=== PATIENT | male | born 1970 | race Caucasian/White ===

== ENCOUNTER 2018-09-15 16:35 | Emergency (ER) | payer SELFPAY ==
[2018-09-15 16:50] VITALS: BMI 35.5
[2018-09-15] MEDS ORDERED: KETOROLAC TROMETHAMINE 60 MG/2 ML VIAL IM ONE (17:48)
[2018-09-15] MEDS ORDERED: traMADol HCL 50 MG TABLET PO ONE (17:49)
--- NOTE | 2018-09-15 17:55 | PDOC ---
History of Present Illness - General Chief Complaint: Back Pain Stated Complaint: BACK PAIN Time Seen by Provider: 09/15/18 17:33 History Source: Patient - History of Present Illness Occurred: reports: other Pain Location: reports: back Past History - Past Medical History Allergies/Adverse Reactions: Allergies Allergy/AdvReac Type Severity Reaction Status Date / Time No Known Allergies Allergy Verified 09/15/18 16:47 COPD: No HTN: No Other medical history: DENIES - Immunization History Immunization Up to Date: No - Suicide/Smoking/Psychosocial Hx Smoking History: Never smoked Hx Alcohol Use: No Drug/Substance Use Hx: No Review of Systems - Review of Systems Constitutional: No: Chills, Fever ABD/GI: No: Nausea, Vomiting, Abdominal cramping : No: Dysuria, Flank Pain, Hematuria Musculoskeletal: Yes: Back Pain Neurological: No: Numbness, Tingling, Weakness *Physical Exam - Vital Signs Last Vital Signs Temp Pulse Resp BP Pulse Ox 98.0 F 74 18 180/110 H 100 09/15/18 16:47 09/15/18 16:47 09/15/18 16:47 09/15/18 16:47 09/15/18 16:47 - Physical Exam Comments: 09/15/18 17:55 Pt standing in ED, reports painful to sit General Appearance: Yes: Appropriately Dressed, Moderate Distress HEENT: positive: Normal Voice Neck: positive: Supple Respiratory/Chest: negative: Respiratory Distress Gastrointestinal/Abdominal: positive: Normal Bowel Sounds, Soft. negative: Tender, Pulsatile Mass, Distended, Guarding, Rebound Musculoskeletal: positive: Vertebral Tenderness (to mid lower back). negative: CVA Tenderness Extremity: positive: Normal Inspection Integumentary: positive: Dry, Warm Neurologic: positive: Fully Oriented, Alert, Normal Mood/Affect, Motor Strength 5/5 Medical Decision Making - Medical Decision Making 09/15/18 17:50 48-year-old male, no significant history, here with non-radiating mid lower back pain that started 2 days ago after living lifting a large watermelon per patient describes pain as sharp, constant, 10-10 and worse when sitting and standing. Has not tried anything for pain. No lower extremity sensory changes, weakness, saddle anesthesia, bowel or bladder incontinence. No history of back pain in the past. Denies any hematuria, dysuria, nausea or vomiting. No abdominal pain See exam LBP in setting of heavy lifting No red flags at this time, i.e cauda equina, etc Exam remarkable for sig elevated BP (does not carry a h/o HTN) w/ ttp to mid lower back, unable to sit in ED, no abd pain/ttp to suggest dissection at this time -pain control -reassess 09/15/18 18:45 Pt signed out to YAJAIRA Blackwell pending reassessment *DC/Admit/Observation/Transfer Diagnosis at time of Disposition: Low back strain Qualifiers: Encounter type: initial encounter Qualified Code(s): S39.012A - Strain of muscle, fascia and tendon of lower back, initial encounter - Discharge Dispostion Condition at time of disposition: Improved - Referrals - Patient Instructions - Post Discharge Activity
[2018-09-15] MEDS ORDERED: KETOROLAC TROMETHAMINE 60 MG/2 ML VIAL ONE (18:06)
[2018-09-15] MEDS ORDERED: traMADol HCL 50 MG TABLET ONE (18:06)
--- NOTE | 2018-09-15 19:58 | PDOC ---
*Physical Exam - Vital Signs Last Vital Signs Temp Pulse Resp BP Pulse Ox 98.0 F 74 18 180/110 H 100 09/15/18 16:47 09/15/18 16:47 09/15/18 16:47 09/15/18 16:47 09/15/18 16:47 - Physical Exam General Appearance: Yes: Appropriately Dressed Musculoskeletal: positive: Vertebral Tenderness Integumentary: positive: Normal Color, Dry, Warm Neurologic: positive: Fully Oriented, Alert ED Treatment Course - Medications Given in the ED: ED Medications Discontinued Medications Generic Name Dose Route Start Last Admin Trade Name Freq PRN Reason Stop Dose Admin Ketorolac Tromethamine 60 mg 09/15/18 17:48 09/15/18 18:14 Toradol Injection - IM 09/15/18 17:49 60 mg ONCE ONE Administration Tramadol HCl 50 mg 09/15/18 17:49 09/15/18 18:15 Ultram - PO 09/15/18 17:50 50 mg ONCE ONE Administration Medical Decision Making - Medical Decision Making 09/15/18 19:53 no midline pain. patient is able to move side to side., b/p likely related to pain. will d/c home with flexeril and ibuprofen. discussed with patient that he needs to follow up with a PCP or orthopedic. likely will benefit from PT. 09/16/18 05:38 *DC/Admit/Observation/Transfer Diagnosis at time of Disposition: Low back strain Qualifiers: Encounter type: initial encounter Qualified Code(s): S39.012A - Strain of muscle, fascia and tendon of lower back, initial encounter - Discharge Dispostion Disposition: HOME Condition at time of disposition: Improved - Prescriptions Prescriptions: Cyclobenzaprine HCl [Flexeril -] 10 mg PO TID PRN #10 tablet PRN Reason: Back Pain Ibuprofen 600 mg PO QID PRN #20 tablet PRN Reason: Pain - Referrals Referrals: Ambrosio Zuniga MD [Staff Physician] - Call tomorrow - Patient Instructions Printed Discharge Instructions: Low Back Pain Additional Instructions: apply ice to the area start light stretches. take ibuprofen every 6 hours as needed for pain take flexeril as prescribed. this medication can make you sleepy. do notdrive after taking this medication or operate heavy machinery. Additional Instructions: * Please call your personal physician to report your Emergency Department visit and to report your progress, if any. * If there is no improvement in symptoms in 2 days call your physician. * Return to the Emergency Department for any worsening symptoms. - Post Discharge Activity Forms/Work/School Notes: Back to Work
[2018-09-15 20:58] VITALS: BP 150/90; PULSE 70; TEMP 97.7
== END 2018-09-15 21:00 | disposition home or self-care (01) ==
LOC: JER 16:35
PROC: 3E0233Z Introduction of Anti-inflammatory into Muscle, Percutaneous Approach (ICD-10-PCS; principal; 2018-09-15)
DX: S39.012A Strain of muscle, fascia and tendon of lower back, initial encounter (principal); X50.0XXA Overexertion from strenuous movement or load, initial encounter; Y93.89 Activity, other specified; Y92.89 Other specified places as the place of occurrence of the external cause; Y99.8 Other external cause status
CPT/HCPCS: 99282-25

== ENCOUNTER 2022-06-29 17:57 | Emergency (ER) | payer OTHER ==
[2022-06-29 18:09] VITALS: BMI 36.0
[2022-06-29] MEDS ORDERED: KETOROLAC TROMETHAMINE 30 MG/1 ML VIAL IM ONE (19:36)
[2022-06-29] MEDS ORDERED: LIDOCAINE 5% TOPICAL PATCH TP ONE (19:36)
[2022-06-29] MEDS ORDERED: CYCLOBENZAPRINE HCL 10 MG TABLET (FP) PO ONE (19:36)
[2022-06-29] MEDS ORDERED: ACETAMINOPHEN 500 MG TABLET (FP) PO ONE (19:36)
[2022-06-29] MEDS ORDERED: LIDOCAINE 5% TOPICAL PATCH ONE (19:49)
[2022-06-29] MEDS ORDERED: CYCLOBENZAPRINE HCL 10 MG TABLET (FP) ONE (19:50)
[2022-06-29] MEDS ORDERED: ACETAMINOPHEN 500 MG TABLET (FP) ONE (19:50)
[2022-06-29] MEDS ORDERED: KETOROLAC TROMETHAMINE 30 MG/1 ML VIAL ONE (19:50)
[2022-06-29 20:51] VITALS: BP 122/77; PULSE 72; RESP 19; TEMP 98.7
[2022-06-29] MEDS ORDERED: LIDOCAINE PATCH REMOVAL MC SCH (22:00)
== END 2022-06-29 20:50 | disposition home or self-care (01) ==
LOC: JERFT 17:57
PROC: 3E023GC Introduction of Other Therapeutic Substance into Muscle, Percutaneous Approach (ICD-10-PCS; principal; 2022-06-29)
DX: M54.50 Low back pain, unspecified (principal)
CPT/HCPCS: 99284-25